=== PATIENT | male | born 2000 | race Caucasian/White ===

== ENCOUNTER → 2021-08-02 | Emergency (ER) | payer OTHER, MEDICAID ==
[~2021-08-02] VITALS: Ht 188 cm; Wt 65.8 kg
[~2021-08-02] MED LIST: ABILIFY10 MG PO; ABILIFY15 MG PO; BENADRYL25 MG PO; BENZTROPINE MES1 MG PO; DEPAKOTE 250MG250 M1 PO; DEPAKOTE ER500 MG PO; DIPHENHIST50 MG PO; IBUPROFEN 800800 M1 PO; NAPROSYN500 MG PO; PREDNISONE 20 M20 MG PO
[2021-08-02 20:08] LABS: URINE BLOOD 3+ (Negative); URINE CLARITY CLEAR; URINE COLOR YELLOW; URINE GLUCOSE-RANDOM NEGATIVE (Negative); URINE KETONES TRACE (Negative); URINE LEUKOCYTES-REFLEX NEGATIVE (Negative); URINE NITRITE-REFLEX NEGATIVE (Negative); URINE PROTEIN 1+ (Negative); URINE SPECIFIC GRAVITY >= 1.030 (1.005-1.030); URINE UROBILINOGEN 0.2 E.U./dl (0.2-1.0)
[2021-08-02 20:10] LABS: URINE BILIRUBIN 1+ (Negative)
[2021-08-02 20:12] LABS: ICTOTEST (BILI CONFIRMATORY) Negative (Negative)
[2021-08-02 20:15] LABS: AMP/METHAMP POSITIVE (Negative); BARBITURATES Negative (Negative); BENZODIAZEPINES Negative (Negative); COCAINE POSITIVE (Negative); METHADONE Negative (Negative); OPIATES Negative (Negative); PCP Negative (Negative); THC POSITIVE (Negative)
[2021-08-02 20:18] LABS: BACTERIA-REFLEX 1-9 Few /HPF (None Seen); SQUAMOUS 4-10 Moderate /LPF (0-3); URINE WBC-REFLEX 0-5 Rare /HPF (0-5)
[2021-08-02 20:22] LABS: HYALINE CASTS 0-3 Few /LPF (None Seen)
[2021-08-02 20:25] LABS: ABSOLUTE BASOPHILS 0.1 thou/uL (0.0-0.2); ABSOLUTE LYMPHOCYTES 1.7 thou/uL (0.8-5.3); ABSOLUTE MONOCYTES 1.9 thou/uL (0.0-1.2); BASOPHILS 0.3 %; EOSINOPHILS 0.1 %; HEMATOCRIT 41.3 % (42.0-52.0); HEMOGLOBIN 14.6 gm/dL (14.0-18.0); LYMPHOCYTES 9.5 %; MCH 29.6 pg (26.0-34.0); MCHC 35.5 g/dL (28.0-37.0); MCV 83.4 fL (80.0-100.0); MONOCYTES 10.6 %; MPV 7.5 fl. (7.2-11.1); NUCLEATED RBCS 0 /100WBC; PLATELET COUNT* 280 thou/uL (150-400); POLYS 79.5 %; RBC 4.95 mil/uL (4.50-6.00); WBC 17.6 thou/uL (4.0-11.0)
[2021-08-02 20:25] LABS: CRYSTALS None Seen /LPF (None Seen)
[2021-08-02 20:32] LABS: CALCIUM 9.3 mg/dL (8.5-10.1); CREATININE 1.8 mg/dL (0.6-1.3); POTASSIUM 4.1 mmol/L (3.5-5.1)
[2021-08-02 20:36] LABS: ALBUMIN 5.1 g/dL (3.4-5.0); TOTAL BILIRUBIN 2.4 mg/dL (<0.1-1.0); TOTAL PROTEIN 8.2 g/dL (6.4-8.2)
[2021-08-02 21:23] VITALS: BP 115/69
== END ==
LOC: M.ERS 19:32
PROVIDERS: Emergency Medicine Emergency Medical Services
DX: K66.8 Other specified disorders of peritoneum (principal); Z20.822 Contact with and (suspected) exposure to COVID-19; F31.9 Bipolar disorder, unspecified; F41.9 Anxiety disorder, unspecified; Z79.899 Other long term (current) drug therapy